=== PATIENT | female | born 1950 | race Caucasian/White ===

== ENCOUNTER → 2016-08-11 | Outpatient (CLI) | payer MEDICARE, BC | LOC: MC.RAD 10:40 | DX: Z12.31 Encounter for screening mammogram for malignant neoplasm of breast (principal); Z80.3 Family history of malignant neoplasm of breast ==

== ENCOUNTER → 2018-02-26 | Outpatient (CLI) | payer MEDICARE, BC | LOC: MC.RAD 09:40 | DX: Z12.31 Encounter for screening mammogram for malignant neoplasm of breast (principal) ==

== ENCOUNTER → 2019-05-23 | Outpatient (CLI) | payer MEDICARE, BC | LOC: MC.RAD 11:30 | DX: Z12.31 Encounter for screening mammogram for malignant neoplasm of breast (principal) ==

== ENCOUNTER → 2019-06-27 | Outpatient (CLI) | payer MEDICARE, BC | LOC: ZCOL.LAB 15:32 | DX: H60.00 Abscess of external ear, unspecified ear (principal) ==

== ENCOUNTER → 2020-07-10 | Outpatient (CLI) | payer MEDICARE, BC | LOC: MC.RAD 11:27 | DX: Z12.31 Encounter for screening mammogram for malignant neoplasm of breast (principal) ==

== ENCOUNTER 2021-07-27 10:37 | Emergency (ER) | payer MEDICARE, BC ==
[~2021-07-27] VITALS: Ht 167.6 cm; Wt 93.2 kg
[2021-07-27] MEDS ORDERED: DOXYCYCLINE 10100 MG PO (12:49)
[2021-07-27 13:08] VITALS: BP 132/64; PULSE 76; TEMP 98.1
== END 2021-07-27 13:09 | disposition home or self-care (01) ==
LOC: COL.ER 10:37
DX: D32.9 Benign neoplasm of meninges, unspecified (principal); J32.0 Chronic maxillary sinusitis; I10 Essential (primary) hypertension

== ENCOUNTER → 2021-12-09 | Outpatient (CLI) | payer MEDICARE, BC ==
[~2021-12-09] MED LIST: DOXYCYCLINE 10100 MG PO
== END ==
LOC: MC.RAD 07:00
DX: Z12.31 Encounter for screening mammogram for malignant neoplasm of breast (principal)

== ENCOUNTER → 2023-07-06 | Outpatient (CLI) | payer MEDICARE, BC | LOC: MC.RAD 11:03 | DX: Z12.31 Encounter for screening mammogram for malignant neoplasm of breast (principal) ==